=== PATIENT | male | born 1980 | race Caucasian/White ===

== ENCOUNTER 2017-02-17 08:09 | Emergency (ER) | payer MEDICAID ==
--- NOTE | 2017-02-17 10:31 | RADIOLOGY REPORT (SQ) ---
EXAM DESCRIPTION: L SPINE WHOLE COMPLETED DATE/TIME: 02/17/2017 10:09 am REASON FOR STUDY: trauma COMPARISON: None. NUMBER OF VIEWS: Five views including obliques. TECHNIQUE: AP, lateral, oblique, and sacral radiographic images acquired of the lumbar spine. LIMITATIONS: None. FINDINGS: MINERALIZATION: Normal. SEGMENTATION: Normal. No transitional anatomy. ALIGNMENT: Normal. VERTEBRAE: Maintained height. No fracture or worrisome bone lesion. DISCS: Disc space narrowing, vacuum disc and osteophyte formation L5-S1. POSTERIOR ELEMENTS: Pedicles and facets are intact. No pars defect or posterior arch defects. HARDWARE: None in the spine. PARASPINAL SOFT TISSUES: Normal. PELVIS: Intact as visualized. No fractures or worrisome bone lesions. SI joints intact. OTHER: No other significant finding. IMPRESSION: No acute findings in the lumbar spine. TECHNICAL DOCUMENTATION: JOB ID: [id number] [employer]- All Rights Reserved
--- NOTE | 2017-02-17 10:32 | RADIOLOGY REPORT (SQ) ---
EXAM DESCRIPTION: T SPINE AP/LAT COMPLETED DATE/TIME: 02/17/2017 10:09 am REASON FOR STUDY: trauma COMPARISON: None. NUMBER OF VIEWS: Two views. TECHNIQUE: AP and lateral radiographic images acquired of the thoracic spine. LIMITATIONS: None. FINDINGS: MINERALIZATION: Normal. ALIGNMENT: Mild scoliosis. VERTEBRAE: No fracture or bone lesion. Maintained height, normal segmentation. DISCS: Multilevel disc space narrowing with osteophytes. HARDWARE: None in the spine. MEDIASTINUM AND SOFT TISSUES: Normal heart size and aortic contour. No soft tissue abnormality. VISUALIZED LUNG YOUNG: Clear. OTHER: No other significant finding. IMPRESSION: No acute findings in the thoracic spine. TECHNICAL DOCUMENTATION: JOB ID: [id number] [employer]- All Rights Reserved
[2017-02-17] MEDS ORDERED: LIDOCAINE 5% (700 MG) TRANSDERMAL ADH..PATCH TP ONE (11:32)
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
[2017-02-17] MEDS ORDERED: TRAMADOL HCL 50 MG TABLET PO ONE (11:39)
[2017-02-17 20:37] VITALS: BP 138/86
== END 2017-02-17 12:00 | disposition home or self-care (01) ==
LOC: ER 08:09
DX: M54.6 Pain in thoracic spine (principal); M54.9 Dorsalgia, unspecified; Z79.899 Other long term (current) drug therapy; W19.XXXA Unspecified fall, initial encounter
CPT/HCPCS: 99283; 72110; 72070; J3490

== ENCOUNTER 2017-03-04 12:35 | Emergency (ER) | payer MEDICAID ==
[2017-03-04 12:43] VITALS: BP 152/103
== END 2017-03-04 13:50 | disposition left against medical advice (07) ==
LOC: ER 12:35
DX: Z53.21 Procedure and treatment not carried out due to patient leaving prior to being seen by health care provider (principal)

== ENCOUNTER 2019-06-02 08:43 | Emergency (ER) | payer SELFPAY ==
--- NOTE | 2019-06-02 09:28 | ER Document Report ---
HPI - HPI Patient complains to provider of: elbow abscess Time Seen by Provider: 06/02/19 09:22 Onset: Other - tuesday Quality of pain: Achy Severity: Severe Pain Level: 4 Context: 38-year-old male with history of back pain and MRSA presents emergency department with abscess to his right elbow. He reports started with a nick on Tuesday. He reports his fiance squeezed it. On Tuesday it started hurting he went to see his primary care provider who told him to soak it. He reports he started placing topical antibiotic on the site. Now the area is tender and d raining slightly. He reports the redness has decreased. Denies fever vomiting diarrhea. Associated Symptoms: None Exacerbated by: Denies Relieved by: Denies Similar symptoms previously: Yes Recently seen / treated by doctor: Yes Past Medical History - General Information source: Patient - Social History Smoking Status: Never Smoker Chew tobacco use (# tins/day): No Drug Abuse: None Occupation: Disability due to back Lives with: Family Family History: Reviewed & Not Pertinent Patient has suicidal ideation: No Patient has homicidal ideation: No - Past Medical History Cardiac Medical History: Reports: Hx Hypertension Renal/ Medical History: Denies: Hx Peritoneal Dialysis GI Medical History: Reports: Hx Gastroesophageal Reflux Disease, Hx Hiatal Hernia Musculoskeletal Medical History: Reports Hx Arthritis Psychiatric Medical History: Reports: Hx Depression - anxiety Traumatic Medical History: Reports: Other - Chronic back pain Infectious Medical History: Reports: Hx MRSA Past Surgical History: Reports: Hx Cholecystectomy - Immunizations Hx Diphtheria, Pertussis, Tetanus Vaccination: No Vertical Provider Document - CONSTITUTIONAL Agree With Documented VS: Yes Exam Limitations: No Limitations General Appearance: WD/WN, No Apparent Distress - INFECTION CONTROL TRAVEL OUTSIDE OF THE [place] IN LAST 30 DAYS: No - HEENT HEENT: Atraumatic, Normocephalic - NECK Neck: Supple - RESPIRATORY Respiratory: No Respiratory Distress - CARDIOVASCULAR Cardiovascular: Regular Rate - MUSCULOSKELETAL/EXTREMETIES Musculoskeletal/Extremeties: MAEW, FROM, Tender - Right elbow - NEURO Level of Consciousness: Awake, Alert, Appropriate Motor/Sensory: No Motor Deficit - DERM Integumentary: Warm, Dry, Abscess - Right elbow area with abscess approximately 2 cm of erythema with fluctuance and opening in the center. Course - Re-evaluation Re-evalutation: 06/02/19 09:27 38-year-old male with history of MRSA presents with elbow access that started Tuesday. Reports his started with a nick his fiance squeezed it and obtain some discharge. He did go follow-up with his primary care provider who told him to do Epson soaks. Patient started placing topical antibiotic on it. Now has abscess approximately 2 cm of erythema with fluctuance and small opening in the center. Patient instructed on I&D. Denies allergies to Septra. Patient tolerated I&D with some discomfort. Abscess packed. Patient instructed to return in 2 days for removal of packing and reevaluation. Patient was also instructed on signs and symptoms of worsening infection. He was instructed to return for worsening infection he verbalized understanding to all instructions. Dictation of this chart was performed using voice recognition software; therefore, there may be some unintended grammatical errors. - Vital Signs Vital signs: Temp Pulse Resp BP Pulse Ox 97.4 F 90 18 160/96 H 95 06/02/19 08:48 06/02/19 08:48 06/02/19 08:48 06/02/19 08:48 06/02/19 08:48 Procedures - Incision and Drainage Right Elbow Time completed: 10:11 Type: Simple Anesthetic type: 1% Lidocaine Blade size: 11 I&D procedure: Betadine prep applied Incision Method: Incision made by scalpel Amount/type of drainage: large amount of whitish thick bloody discharge obtained Adult Front & Back picture: 1 - vertical incision made, probed, packed. pt tolerated procedure well Discharge - Discharge Clinical Impression: Abscess, elbow Condition: Stable Disposition: HOME, SELF-CARE Instructions: Abscess ([facility]), Post Incision and Drainage, Trimethoprim-Sulfa ([facility]) Additional Instructions: *You have been treated for an abscess with incision and drainage *Take medication as prescribed, take ibuprofen as indicated for pain *Monitor the site for signs of increasing infection such as increasing pain, redness, swelling, warmth *Return to the Emergency Department TuesdayJune 04 for packing removal *Return to ED for signs of increasing infection, worsening condition, changes, needs Prescriptions: Sulfamethoxazole/Trimethoprim [Bactrim Ds Tablet] 1 each PO BID #20 tablet Forms: Elevated Blood Pressure Referrals: SUSAN BOBO MD [Primary Care Provider] - Follow up in 1 week
[2019-06-02] MEDS ORDERED: SULFAMETHOXAZOLE/TRIMETHOPRIM 800-160 MG TABLET PO ONE (10:09)
[2019-06-02 10:37] VITALS: BP 152/80
== END 2019-06-02 10:32 | disposition home or self-care (01) ==
LOC: ER 08:43
PROC: 0H9DXZZ Drainage of Right Lower Arm Skin, External Approach (ICD-10-PCS; principal; 2019-06-02)
DX: L02.413 Cutaneous abscess of right upper limb (principal); I10 Essential (primary) hypertension
CPT/HCPCS: 87070; 87075; 87077; 87186; 87205; 99283

== ENCOUNTER 2019-06-04 10:50 | Emergency (ER) | payer SELFPAY ==
[2019-06-04 11:04] VITALS: BP 156/93
--- NOTE | 2019-06-04 11:48 | ER Document Report ---
ED Suture/Wound Recheck - General Chief Complaint: Arm Pain Stated Complaint: RIGHT ARM PAIN Time Seen by Provider: 06/04/19 11:47 Primary Care Provider: SUSAN BOBO MD [Primary Care Provider] - Follow up in 3-5 days Mode of Arrival: Ambulatory Information source: Patient Notes: 38-year-old male presented to ED for recheck of abscess. It was I&D Tuesday. He states there is no pain unless you press on it at this time. There is no redness no inflammation no swelling. There is very minimal drainage from the site. Packing was removed site was irrigated with saline and new dressing applied. He does not need packing anymore. Patient states he will continue to take antibiotics as instructed. TRAVEL OUTSIDE OF THE [place] IN LAST 30 DAYS: No - HPI Previous ED treatment: I&D of abscess Antibiotics given previously: Prescription Quality of pain: No pain Severity: None Pain Level: Denies Context: Other Symptoms since procedure: No complaints - Abscess Exacerbated by: Other - Palpation Relieved by: Denies - Related Data Allergies/Adverse Reactions: No Known Allergies Allergy (Verified 03/04/17 12:41) Home Medications: perceset, lisinopril, and "one other blood pressure medication" Past Medical History - General Information source: Patient - Social History Smoking Status: Never Smoker Frequency of alcohol use: None Drug Abuse: None Family History: Reviewed & Not Pertinent Patient has suicidal ideation: No Patient has homicidal ideation: No - Past Medical History Cardiac Medical History: Reports: Hx Hypertension Pulmonary Medical History: Reports: None EENT Medical History: Reports: None Neurological Medical History: Reports: None Endocrine Medical History: Reports: None Renal/ Medical History: Reports: None Malignancy Medical History: Reports None GI Medical History: Reports: Hx Gastroesophageal Reflux Disease, Hx Hiatal Hernia Musculoskeletal Medical History: Reports Hx Arthritis Skin Medical History: Reports Hx Cellulitis, Reports Hx MRSA Psychiatric Medical History: Reports: Hx Depression - anxiety Traumatic Medical History: Reports: None Infectious Medical History: Reports: Hx MRSA Past Surgical History: Reports: Hx Cholecystectomy - Immunizations Hx Diphtheria, Pertussis, Tetanus Vaccination: No Review of Systems - Review of Systems Constitutional: No symptoms reported EENT: No symptoms reported Cardiovascular: No symptoms reported Respiratory: No symptoms reported Gastrointestinal: No symptoms reported Genitourinary: No symptoms reported Male Genitourinary: No symptoms reported Musculoskeletal: No symptoms reported Skin: Other - Abscess healing well to the right elbow. No redness or inflammation minimal drainage packing was removed Hematologic/Lymphatic: No symptoms reported Neurological/Psychological: No symptoms reported Physical Exam - Vital signs Vitals: Temp Pulse Resp BP Pulse Ox 98.5 F 96 15 156/93 H 94 06/04/19 11:02 06/04/19 11:02 06/04/19 11:02 06/04/19 11:02 06/04/19 11:02 Interpretation: Normal - General General appearance: Appears well, Alert - HEENT Head: Normocephalic, Atraumatic Eyes: Normal Pupils: PERRL - Respiratory Respiratory status: No respiratory distress Chest status: Nontender Breath sounds: Normal Chest palpation: Normal - Cardiovascular Rhythm: Regular Heart sounds: Normal auscultation Murmur: No - Abdominal Inspection: Normal Distension: No distension Bowel sounds: Normal Tenderness: Nontender Organomegaly: No organomegaly - Back Back: Normal, Nontender - Extremities General upper extremity: Normal inspection, Nontender, Normal color, Normal ROM, Normal temperature General lower extremity: Normal inspection, Nontender, Normal color, Normal ROM, Normal temperature, Normal weight bearing. No: Rachel's sign Elbow: Other - Healing abscess to right elbow. There is no redness no inflammation minimal drainage. - Neurological Neuro grossly intact: Yes Cognition: Normal Orientation: AAOx4 [place] Coma Scale Eye Opening: Spontaneous [place] Coma Scale Verbal: Oriented [place] Coma Scale Motor: Obeys Commands [place] Coma Scale Total: 15 Speech: Normal Motor strength normal: LUE, RUE, LLE, RLE Sensory: Normal - Psychological Associated symptoms: Normal affect, Normal mood - Skin Skin Temperature: Warm Skin Moisture: Dry Skin Color: Normal Location of irregularity: Extremities - Healing abscess to the right elbow. No redness no inflammation minimal drainage Course - Re-evaluation Re-evalutation: 06/04/19 16:13 Right elbow abscess I&D on the . Patient here for recheck. No redness no inflammation minimal drainage packing removed wound redressed instructions given. Patient was able to verbalize understanding and agreement with treatment plan. Patient states he is taking his Bactrim as ordered. He does have MRSA which is susceptible to the Bactrim that he is taken. Patient was given instructions for cleaning the wound and discharged home. Patient was given instructions when to return to the ED. Patient verbalized understanding and agreement with treatment plan - Vital Signs Vital signs: Temp Pulse Resp BP Pulse Ox 98.5 F 96 15 156/93 H 94 06/04/19 11:02 06/04/19 11:02 06/04/19 11:02 06/04/19 11:02 06/04/19 11:02 Discharge - Discharge Clinical Impression: Encounter for recheck of abscess following incision and drainage Condition: Stable Disposition: HOME, SELF-CARE Additional Instructions: Please keep site clean and dry. Use Epson salt as I have instructed you. Keep the wound covered until drainage ceases. If it starts getting red swollen or increasing drainage please return to the ED or your primary doctor. Epsom Salt Soaks Soak the wound area in a container of warm epsom salt water. If you can't get the wound area into a bucket or coronado, use a folded towel soaked in the epsom salt solution and apply to the area. Use clean hot tap water (about the temperature of a very warm bath), mixing in about one (1) teaspoon for every pint of water. Two gallon --> 16 teaspoons Epsom Salts One gallon --> 8 teaspoons Epsom Salts Two quarts --> 4 teaspoons Epsom Salts One quart --> 2 teaspoons Epsom Salts Soak the wound for about 20 minutes while gently moving it around in the water. Repeat this four (4) times a day. Acetaminophen Acetaminophen may be taken for pain relief or fever control. It's much safer than aspirin, offering a wider range of "safe" dosages. It is safe during . Some brand names are Tylenol, Panadol, Datril, Anacin 3, Tempra, and Liquiprin. Acetaminophen can be repeated every four hours. The following are maximum recommended dosages: WEIGHT Dose Drops Elixir Chewable(80mg) (LBS.) drprs=droppers tsp=teaspoon 6 40 mg .4 ml (1/2) 6-11 80 mg .8 ml (full) 1/2 tsp 1 tab 12-16 120 mg 1 1/2 drprs 3/4 tsp 1 1/2 tabs 17-23 160 mg 2 drprs 1 tsp 2 tabs 24-30 240 mg 3 drprs 1 1/2 tsp 3 tabs 30-35 320 mg 2 tsp 4 tabs 36-41 360 mg 2 1/4 tsp 4 1/2 tabs 42-47 400 mg 2 1/2 tsp 5 tabs 48-53 480 mg 3 tsp 6 tabs 54-59 520 mg 3 1/4 tsp 6 1/2 tabs 60-64 560 mg 3 1/2 tsp 7 tabs 65-70 600 mg 3 3/4 tsp 7 1/2 tabs 71-76 640 mg 4 tsp 8 tabs 77-82 720 mg 4 1/2 tsp 9 tabs 83-88 800 mg 5 tsp 10 tabs >89 pounds or adults 650 mg to 900 mg Acetaminophen can be repeated every four hours. Maximum daily dose not to exceed 4000 mg. These maximum recommended dosages are slightly higher than the dosages written on the product container, but these dosages are very safe and well below the toxic dosage for acetaminophen. FOLLOW-UP CARE: If you have been referred to a physician for follow-up care, call the physicians office for an appointment as you were instructed or within the next two days. If you experience worsening or a significant change in your symptoms, notify the physician immediately or return to the Emergency Department at any time for re-evaluation. Forms: Elevated Blood Pressure Referrals: SUSAN BOBO MD [Primary Care Provider] - Follow up in 3-5 days
== END 2019-06-04 12:00 | disposition home or self-care (01) ==
LOC: ER 10:50
DX: L02.413 Cutaneous abscess of right upper limb (principal); Z48.01 Encounter for change or removal of surgical wound dressing; I10 Essential (primary) hypertension; Z79.899 Other long term (current) drug therapy; Z79.891 Long term (current) use of opiate analgesic; Z86.14 Personal history of Methicillin resistant Staphylococcus aureus infection
CPT/HCPCS: 99282